=== PATIENT | female | born 1990 | race Caucasian/White ===

== ENCOUNTER 2017-02-22 09:41 | Day surgery (SDC) | payer OTHER ==
[~2017-02-22] VITALS: Ht 162.6 cm; Wt 70.8 kg
[~2017-02-22 09:41] MED LIST: CEFAZOLIN SOD 1 GM/ ISO 50 ML PREMIX IV ONE
[2017-02-22 09:55] VITALS: O2SAT 98
[2017-02-22] MEDS ORDERED: LR 1,000 ML IV.SOLN IV ONE (11:10)
[2017-02-22] MEDS ORDERED: KETOROLAC TROMETHAMINE 30 MG VIAL IVP ONE (11:10)
[2017-02-22] MEDS ORDERED: MIDAZOLAM HCL 5 MG/5 ML VIAL IVP ONE (11:10)
[2017-02-22] MEDS ORDERED: ONDANSETRON HCL 4 MG/2 ML VIAL IVP ONE (11:10)
[2017-02-22] MEDS ORDERED: NS IRRIG SOLN 1000 ML IR ONE (11:10)
[2017-02-22] MEDS ORDERED: SEVOFLURANE 15 MIN GAS INH ONE (11:10)
[2017-02-22] MEDS ORDERED: fentaNYL CITRATE/PF 100 MCG/2 ML AMP IVP ONE (11:10)
[2017-02-22] MEDS ORDERED: MEPERIDINE HCL/PF 25 MG/ML DISP.SYRIN IVP PRN ×2 (11:30)
[2017-02-22] MEDS ORDERED: HYDROmorphone 2 MG/ML VIAL IVP PRN ×2 (11:30)
[2017-02-22] MEDS ORDERED: HYDROmorphone 1 MG INJ. 1 MG/ML AMPUL IVP PRN ×2 (11:30→12:15)
[2017-02-22] MEDS ORDERED: KETOROLAC TROMETHAMINE 30 MG VIAL IVP PRN (11:30)
[2017-02-22] MEDS ORDERED: LR 1,000 ML IV SCH (11:30)
[2017-02-22] MEDS ORDERED: ONDANSETRON HCL 4 MG/2 ML VIAL IVP PRN (11:30)
[2017-02-22] MEDS ORDERED: D5/0.45 NS 1,000 ML IV SCH (12:07)
[2017-02-22] MEDS ORDERED: HYDROcodone/ACETAMIN 5-325 MG TAB (NORCO/ VICODIN) PO PRN ×2 (12:15)
[2017-02-22 13:02] VITALS: BP 124/67; PULSE 70; RESP 12
== END 2017-02-22 13:35 | disposition home or self-care (01) ==
LOC: SDS 09:41 → SMU 09:42 → SDS 13:35
PROVIDERS: ATTEND Colon & Rectal Surgery
DX: D24.1 Benign neoplasm of right breast (principal)
CPT/HCPCS: 19120; 88305; J0690; J1885; J2250; J2405; J3010; J7120